=== PATIENT | male | born 1970 | race Caucasian/White ===

== ENCOUNTER 2016-07-18 14:43 | Outpatient (CLI) | payer OTHER | END 2016-07-18 14:44 | disposition home or self-care (01) | LOC: SC 14:43 | PROVIDERS: ATTEND Internal Medicine Pulmonary Disease | DX: G47.30 Sleep apnea, unspecified (principal); G47.10 Hypersomnia, unspecified; R06.83 Snoring | CPT/HCPCS: 99203; 99212 ==

== ENCOUNTER 2016-09-03 20:13 | Outpatient (CLI) | payer OTHER | END 2016-09-03 20:14 | disposition home or self-care (01) | DX: G47.61 Periodic limb movement disorder (principal); R06.83 Snoring ==

== ENCOUNTER 2016-09-21 15:21 | Outpatient (CLI) | payer OTHER | END 2016-09-21 15:22 | disposition home or self-care (01) | DX: R06.83 Snoring (principal); G47.23 Circadian rhythm sleep disorder, irregular sleep wake type; G47.61 Periodic limb movement disorder ==

== ENCOUNTER 2018-08-22 13:20 | Outpatient (CLI) | payer OTHER ==
--- NOTE | 2018-08-23 08:12 | MRI Report ---
Reason: RADICULOPATHY,LUMBOSACRAL REGION Procedure Date: 08/22/2018 Accession Number: [id number] / [id number] Procedure: MRI - Lumbar Spine W/O CPT Code: FULL RESULT: EXAM: MRI LUMBAR SPINE WITHOUT CONTRAST EXAM DATE: 08/22/2018 01:41 PM. CLINICAL HISTORY: Low back pain. COMPARISON: None. TECHNIQUE: Multiplanar, multisequence T1-weighted and fluid-sensitive sequences of the lumbar spine from T12 to S1 without contrast. Other: None. FINDINGS: Spinal Canal: The conus terminates at T12-L1. The conus medullaris and cauda equina are unremarkable. Alignment: No scoliosis or spondylolisthesis. Bone Marrow: Five [id number]-[id number] lumbar vertebral bodies are assumed. No gross fractures or bone lesions. No bone marrow replacement. Disk Levels/Facets: L5-S1: Mild facet arthropathy. No stenoses. L4-L5: Small to moderate sized posterior right paracentral disk extrusion which extends slightly inferiorly to the upper L5 level. The disk extrusion abuts, and may cause impingement of the right L5 nerve within the right upper L5 lateral recess (axial image 12 and sagittal image 8). There is moderate to severe right upper L5 lateral recess stenosis. Mild canal stenosis. No foraminal stenoses. L3-L4: Unremarkable. L2-L3, L1-L2, T12-L1: Unremarkable. T11-T12: Small left foraminal disk protrusion. Mild left foraminal stenosis. Musculature: Normal. No edema or fatty atrophy. Other: The partially visualized retroperitoneum is unremarkable. IMPRESSION: 1. Small to moderate sized posterior right paracentral disk extrusion at L4-L5 which extends inferiorly to the upper L5 level. The disk extrusion abuts, and may cause impingement of the right L5 nerve. Moderate to severe right upper L5 lateral recess stenosis. Mild canal stenosis. 2. Small left foraminal disk protrusion causing mild left foraminal stenosis at T11-T12. Comment: The following findings are so common in adults without low back pain that while we report their presence, they must be interpreted with caution and in the context of the clinical situation. (Reference Herminiak et al, Spine 2001) Prevalence of findings in patients without low back pain: Disk degeneration (any evidence): 92% Disk desiccation/T2 signal loss: 83% Disk height loss: 56% Disk bulge: 64% Disk protrusion: 32% Annular tear/high intensity zone: 38% RADIA
== END 2018-08-22 13:21 | disposition home or self-care (01) ==
LOC: DI 13:20
PROVIDERS: ATTEND Nurse Practitioner Family
DX: M47.9 Spondylosis, unspecified (principal); M51.26 Other intervertebral disc displacement, lumbar region; M51.24 Other intervertebral disc displacement, thoracic region; M48.061 Spinal stenosis, lumbar region without neurogenic claudication
CPT/HCPCS: 72148

== ENCOUNTER 2020-07-17 14:36 | Outpatient (CLI) | payer OTHER ==
--- NOTE | 2020-07-17 17:06 | MRI Report ---
PROCEDURE: Lumbar Spine W/O INDICATIONS: NERVE ROOT AND PLEXUS DISORDER, UNSPEC TECHNIQUE: Noncontrast sagittal T1 spin echo and T2 fast echo, sagittal STIR, axial T1 and T2 fast spin echo thr ough the lumbar spine. In cases with scoliosis, additional coronal T2 fast spin echo may be performe d. COMPARISON: 08/22/2018. FINDINGS: Image quality: Excellent. Alignment and Curvature: There is normal bony alignment. Bone Marrow: Marrow is of normal overall signal. No acute vertebral body compression fractures. Spinal Cord: Conus medullaris terminates at the L1 level. Visualized cord demonstrates normal signa l and size. Paraspinous Soft Tissues: No paravertebral masses. T12-L1: Normal in appearance L1-L2: Normal in appearance. L2-L3: Normal in appearance. L3-L4: Normal in appearance. L4-L5: Moderate canal narrowing secondary to right paramedian disc extrusion with inferior migratio n to the level of the mid L5 vertebral body, which has progressed. There is complete effacement of th e right lateral recess. There is also near complete effacement of the left lateral recess. There is i nterval progression since prior study, bilaterally. Unchanged mild bilateral foraminal stenoses. L5-S1: Minimal canal narrowing. Mild bilateral foraminal stenoses. IMPRESSION: L4-L5 right paramedian disc extrusion with inferior migration to the level of the mid L5 vertebral peter dy. Complete effacement of the right lateral recess. Near complete effacement of the left lateral rec ess. This suggests impingement of the descending L5 nerve roots on both sides (right greater than lef t) please correlate clinically. Moderate L4-L5 canal narrowing. This has progressed since the prior s tudy dated 08/22/2018. Mild bilateral foraminal stenoses at L4-L5 and L5-S1 Reviewed by: Jam Milton MD on 07/17/2020 5:04 PM PST Approved by: Jam Milton MD on 07/17/2020 5:04 PM PST Station ID: [id number]
== END 2020-07-17 14:37 | disposition home or self-care (01) ==
LOC: DI 14:36
PROVIDERS: ATTEND Nurse Practitioner Family
DX: M51.26 Other intervertebral disc displacement, lumbar region (principal); M48.07 Spinal stenosis, lumbosacral region; M48.061 Spinal stenosis, lumbar region without neurogenic claudication

== ENCOUNTER 2021-04-26 03:01 | Emergency (ER) | payer OTHER ==
--- NOTE | 2021-04-26 03:22 | ED Physician Documentation ---
History of Present Illness - Stated complaint Stated Complaint: COUGH, HEADACHE - Chief complaint Chief Complaint: Resp - History obtained from History obtained from: Patient - History of Present Illness Timing: How many weeks ago (1) - Additonal information Additional information: c/o one week of generalized headache, sinus congestion, mild dyspnea, moist coug h. he has mild sore throat but he suspects this is due to the coughing as it developed subsequent to the cough. His symptoms had been improving steadily until approximately midnight today when he felt they rapidly were worsening. Denies fevers. He is COVID vaccinated. Review of Systems Constitutional: reports: Reviewed and negative Ears: denies: Ear pain Nose: reports: Congestion, Sinus pressure / pain Throat: reports: Sore throat Cardiac: reports: Reviewed and negative Respiratory: reports: Dyspnea, Cough. denies: Hemoptysis, Wheezing Neurologic: reports: Headache PD PAST MEDICAL HISTORY - Past Medical History Past Medical History: Yes Cardiovascular: Hypertension, High cholesterol Endocrine/Autoimmune: Other Other Past Medical History: Prediabetis - Past Surgical History Past Surgical History: Yes Ortho: Spine surgery - Present Medications Home Medications: Ambulatory Orders Medication Instructions Recorded Confirmed Losartan [Cozaar] 50 mg PO DAILY 04/26/21 04/26/21 Simvastatin [Zocor] 20 mg PO DAILY 04/26/21 04/26/21 metFORMIN [Glucophage] 500 mg PO BID 04/26/21 04/26/21 - Allergies Allergies/Adverse Reactions: Allergies Allergy/AdvReac Type Severity Reaction Status Date / Time No Known Drug Allergies Allergy Verified 04/26/21 03:12 - Social History Does the pt smoke?: No Smoking Status: Never smoker Does the pt drink ETOH?: Yes ETOH Use: Wine Does the pt have substance abuse?: No - Immunizations Immunizations are current?: No Immunizations: TDAP >10years/unknown - POLST Patient has POLST: No PD ED PE NORMAL - Vitals Vital signs reviewed: Yes - General General: Alert and oriented X 3, No acute distress, Well developed/nourished - HEENT HEENT: Other (mild posterior oropharyngeal erythema without swelling or exudate) - Neck Neck: Supple, no meningeal sign - Cardiac Cardiac: RRR, No murmur - Respiratory Respiratory: No respiratory distress, Other (trace left lower lobe rhonchi posteriorly ) Results - Vitals Vitals: Vital Signs - 24 hr 04/26/21 04/26/21 04/26/21 03:05 04:26 04:47 Temperature 36.8 C Heart Rate 92 82 86 Respiratory 16 16 15 Rate Blood Pressure 173/91 H 164/96 H 138/80 H O2 Saturation 96 94 94 04/26/21 05:47 Temperature 36.6 C Heart Rate 72 Respiratory 16 Rate Blood Pressure 127/82 H O2 Saturation 97 Oxygen O2 Source Room air - Labs Labs: Laboratory Tests 04/26/21 04/26/21 03:50 03:50 Nasal Adenovirus (PCR) NOT DETECTED Nasal B. parapertussis DNA (PCR) NOT DETECTED Nasal Coronavir 229E PCR NOT DETECTED Nasal Coronavir HKU1 PCR NOT DETECTED Nasal Coronavir NL63 PCR NOT DETECTED Nasal Coronavir OC43 PCR NOT DETECTED Nasal Enterovir/Rhinovir PCR NOT DETECTED Nasal Influenza B PCR NOT DETECTED Nasal Influenza A PCR NOT DETECTED Nasal Parainfluen 1 PCR NOT DETECTED Nasal Parainfluen 2 PCR NOT DETECTED Nasal Parainfluen 3 PCR NOT DETECTED Nasal Parainfluen 4 PCR NOT DETECTED Nasal RSV (PCR) NOT DETECTED Nasal B.pertussis DNA PCR NOT DETECTED Nasal C.pneumoniae (PCR) NOT DETECTED Rocael Human Metapneumo PCR NOT DETECTED Nasal M.pneumoniae (PCR) NOT DETECTED Nasal SARS-CoV-2 (PCR) NOT DETECTED Group A Strep Rapid Negative - Rads (name of study) chest xray Radiology: Prelim report reviewed, See rad report PD MEDICAL DECISION MAKING - ED course Complexity details: reviewed results, re-evaluated patient, considered differential, d/w patient ED course: HPI/ROS suggests URI (bronchitis, sinusitis, and pharyngitis) although he describes moist cough and has trace left basilar rhonchi and thus CXR performed; this is interpreted as no acute disease. His respiratory panel is negative including COVID, and rapid strep is also negative. Viral URI suspected at this time Departure - Departure Disposition: 01 Home, Self Care Clinical Impression: Bronchitis, Sinusitis Condition: Good Instructions: ED Upper Resp Infec No Abx Tx, ED Sinusitis No Abx Follow-Up: BARNEY FLYNN ARNP [Primary Care Provider] - Forms: Activity restrictions Discharge Date/Time: 04/26/21 05:49
[2021-04-26 04:09] LABS: RAPID STREP SCREEN Negative (Negative)
[2021-04-26 04:52] LABS: CORONAVIRUS 229E-RESP PCR NOT DETECTED
[2021-04-26 04:53] LABS: B. PARAPERTUSSIS- RESP PCR PAN NOT DETECTED; B. PERTUSSIS- RESP PCR PANEL NOT DETECTED; C. PNEUMONIAE- RESP PCR PANEL NOT DETECTED; CORONAVIRUS HKU1-RESP PCR NOT DETECTED; CORONAVIRUS NL63-RESP PCR NOT DETECTED; CORONAVIRUS OC43-RESP PCR NOT DETECTED; HUMAN METAPNEUMOVIRUS NOT DETECTED; INFLUENZA A- RESP PCR PANEL NOT DETECTED; INFLUENZA B - RESP PCR PANEL NOT DETECTED; M. PNEUMONIAE- RESP PCR PANEL NOT DETECTED; PARAINFLUENZA VIRUS 1 NOT DETECTED; PARAINFLUENZA VIRUS 2 NOT DETECTED; PARAINFLUENZA VIRUS 3 NOT DETECTED; PARAINFLUENZA VIRUS 4 NOT DETECTED; RHINOVIRUS/ENTEROVIRUS NOT DETECTED; RSV- RESP PCR PANEL NOT DETECTED; SARS-CoV-2 -RESP PCR PANEL NOT DETECTED
[2021-04-26 05:49] VITALS: BP 127/82
--- NOTE | 2021-04-26 09:01 | XRAY Report ---
PROCEDURE: Chest 2 View X-Ray INDICATIONS: cough, dyspnea TECHNIQUE: 2 views of the chest. COMPARISON: None. FINDINGS: Surgical changes and devices: None. Lungs and pleura: No pleural effusions or pneumothorax. Lungs are clear. There is hyperinflation of the lungs with mild flattening of the hemidiaphragms on the lateral projection suggestive of COPD. Mediastinum: Mediastinal contours are normal. Heart size is normal. Bones and chest wall: No suspicious bony abnormalities. Soft tissues appear unremarkable. IMPRESSION: 1. No acute cardiopulmonary disease. 2. Findings suggestive of COPD. Reviewed by: Nikita Cramer MD on 04/26/2021 9:00 AM [facility] Approved by: Nikita Cramer MD on 04/26/2021 9:00 AM [facility] Station ID: [id number]
== END 2021-04-26 05:49 | disposition home or self-care (01) ==
LOC: ED 03:01
DX: J40 Bronchitis, not specified as acute or chronic (principal); J32.9 Chronic sinusitis, unspecified; Z20.822 Contact with and (suspected) exposure to COVID-19
CPT/HCPCS: 0202U; 71046; 87070; 87430; 99282; 99284

== ENCOUNTER 2021-08-17 13:15 | Outpatient (CLI) | payer OTHER | END 2021-08-17 13:16 | disposition home or self-care (01) | LOC: RT 13:15 | PROVIDERS: ATTEND Internal Medicine Critical Care Medicine | DX: J45.40 Moderate persistent asthma, uncomplicated (principal) | CPT/HCPCS: 94010; 94727; 94729 ==